=== PATIENT | female | born 1985 | race Hispanic/Latino ===

== ENCOUNTER 2020-06-27 12:37 | Emergency (ER) | payer BC, SELFPAY ==
--- OUTSIDE RECORDS SUMMARY | 2020-06-27 12:39 | XMS REPORT | Continuity of Care Document ---
:1985 Author Organization [facility] t Address [facility] [place] [address] [place] [id number] Care Team Providers Name Role Phone Fahad Mccauley Attending Clinician Doctor Unassigned, Name Attending Clinician Unavailable Problems This patient has no known problems. Allergies, Adverse Reactions, Alerts This patient has no known allergies or adverse reactions. Medications This patient has no known medications. Procedures This patient has no known procedures. Encounters Start End Encounter Admission Attending Care Care Encounter Source Date/Time Date/Time Type Type Clinicians Facility Department ID 2019-07-27 2019-07-27 Emergency CathyKevin ariza [facility] [id number] 19:57:58 21:27:00 T Laith [id number] Rule [id number] [place] [id number] 2019-07-27 2019-07-27 Orders Doctor YISSEL [id number] 00:00:00 00:00:00 Only UnassignedCYDNEY [id number] [place] [facility] [id number] Results This patient has no known results.
--- NOTE | 2020-06-27 15:14 | RAD REPORT ---
EXAM DESCRIPTION: Payal Single View06/27/2020 2:49 pm CLINICAL HISTORY: cough COMPARISON: none FINDINGS: The lungs appear clear of acute infiltrate. The heart is normal size IMPRESSION: No acute abnormalities displayed
--- NOTE | 2020-06-27 15:18 | ER ---
Nurse's Notes [facility] Name: Tequila Shankar Age: 34 yrs Sex: Female : 1985 Arrival Date: 06/27/2020 Time: 12:41 Bed 4 Private MD: Juancarlos Ortiz T Diagnosis: Coronavirus infection, unspecified Presentation: 06/27 12:47 Coronavirus screen: Client denies travel out of the [place] in the last 14 days. chills, ll1 congestion, cough unrelated to allergies, diarrhea, difficulty breathing, fatigue, headache, muscle pain, nausea, runny nose, shaking with chills, shortness of breath, sore throat, loss of taste or smell, Client presents with at least one sign or symptom that may indicate coronavirus-19. Standard/surgical mask placed on the client. Client reports previous positive COVID test result. Ebola Screen: Patient denies travel to an Ebola-affected area in the 21 days before illness onset. Initial Sepsis Screen: Does the patient meet any 2 criteria? No. Patient's initial sepsis screen is negative. Does the patient have a suspected source of infection? Yes: Productive cough/pneumonia. Risk Assessment: Do you want to hurt yourself or someone else? Patient reports no desire to harm self or others. Onset of symptoms was June 22, 2020. 12:47 Method Of Arrival: Ambulatory ll1 12:47 Acuity: NAIN 3 ll1 12:49 Chief complaint: Patient states: Covid positive Thursday, symptoms began Thursday. Chest ll1 tightness since Thursday. SOB for 2 days. No fever. Triage Assessment: 13:46 Respiratory: hb Historical: - Allergies: 12:49 No Known Allergies; ll1 - PMHx: 12:49 Diabetes - IDDM; Asthma; ll1 - PSHx: 12:49 ; Tubal ligation; ll1 - Immunization history:: Flu vaccine is not up to date. - Social history:: Smoking status: Patient denies any tobacco usage or history of. Screenin:45 Abuse screen: Denies threats or abuse. Denies injuries from another. Nutritional hb screening: No deficits noted. Tuberculosis screening: No symptoms or risk factors identified. Fall Risk None identified. Assessment: 13:45 General: Appears in no apparent distress. Behavior is calm, cooperative. Pain: Pain hb currently is 5 out of 10 on a pain scale. Neuro: Level of Consciousness is awake, alert, obeys commands, Oriented to person, place, time, situation. Cardiovascular: Capillary refill < 3 seconds Patient's skin is warm and dry. Rhythm is regular. Respiratory: Reports shortness of breath on exertion cough that is non-productive, Airway is patent Respiratory effort is even, unlabored, Respiratory pattern is regular, symmetrical. GI: No signs and/or symptoms were reported involving the gastrointestinal system. : No signs and/or symptoms were reported regarding the genitourinary system. EENT: No signs and/or symptoms were reported regarding the EENT system. Derm: Skin is pink, warm \T\ dry. Musculoskeletal: No signs and/or symptoms reported regarding the musculoskeletal system. 14:58 Reassessment: Patient appears in no apparent distress at this time. Patient and/or hb family updated on plan of care and expected duration. Pain level reassessed. Patient is alert, oriented x 3, equal unlabored respirations, skin warm/dry/pink. Vital Signs: 12:47 Pulse 85; Resp 18; Temp 97.4; Pulse Ox 100% on R/A; Pain 5/10; ll1 12:49 BP 170 / 116; ll1 12:49 Weight 87.09 kg; Height 5 ft. 0 in. (152.40 cm); ll1 14:58 BP 162 / 110; Pulse 73; Resp 16; Pulse Ox 99% on R/A; hb 12:49 Body Mass Index 37.50 (87.09 kg, 152.40 cm) ll1 ED Course: 12:41 Patient arrived in ED. mr 12:41 Juancarlos Ortiz MD is Private Physician. mr 12:47 Arm band placed on. ll1 12:49 Triage completed. ll1 13:33 Georgia Norwood FNP-C is [facility]. kb 13:33 Kevin Castrejon MD is Attending Physician. kb 13:37 Aleyda Zamora, SAMUEL is Primary Nurse. hb 13:45 Patient has correct armband on for positive identification. Bed in low position. Call hb light in reach. 14:49 Chest Single View XRAY In Process Unspecified. EDMS 15:32 No provider procedures requiring assistance completed. Patient did not have IV access hb during this emergency room visit. Administered Medications: No medications were administered Outcome: 15:17 Discharge ordered by . isaak 15:32 Discharged to home ambulatory. hb 15:32 Condition: stable 15:32 Discharge instructions given to patient, Instructed on discharge instructions, follow up and referral plans. medication usage, Demonstrated understanding of instructions, follow-up care, medications. 15:32 Patient left the ED. hb Signatures: Dispatcher [employer] EDIA Georgia Norwood, [facility] AHMAID-Negin Limon mr Aleyda Zamora, RN RN Poornima Vergara RN RN ll1
--- NOTE | 2020-06-27 15:18 | EDPHYS ---
Physician Documentation [facility] Name: Tequila Shankar Age: 34 yrs Sex: Female : 1985 Arrival Date: 06/27/2020 Time: 12:41 Bed 4 Private MD: Juancarlos Ortiz T ED Physician Kevin Castrejon HPI: 06/27 14:08 This 34 yrs old Female presents to ER via Ambulatory with complaints of kb COVID+, Breathing Difficulty. 14:10 The patient or guardian reports cough, difficulty breathing. Onset: The kb symptoms/episode began/occurred 6 day(s) ago, and became worse today. Severity of symptoms: At their worst the symptoms were moderate, in the emergency department the symptoms are unchanged. Modifying factors: The symptoms are alleviated by nothing, the symptoms are aggravated by nothing. Associated signs and symptoms: The patient has no apparent associated signs or symptoms. The patient has not experienced similar symptoms in the past. The patient has not recently seen a physician. Pt has had cough and shortness of breath since Thursday. Tested positive for COVID on Thursday. Came in today because the shortness of breath seems worse and her nebs aren't helping. . Historical: - Allergies: 12:49 No Known Allergies; ll1 - PMHx: 12:49 Diabetes - IDDM; Asthma; ll1 - PSHx: 12:49 ; Tubal ligation; ll1 - Immunization history:: Flu vaccine is not up to date. - Social history:: Smoking status: Patient denies any tobacco usage or history of. ROS: 14:07 Constitutional: Negative for fever, chills, and weight loss, Cardiovascular: Negative kb for chest pain, palpitations, and edema, Abdomen/GI: Negative for abdominal pain, nausea, vomiting, diarrhea, and constipation, MS/Extremity: Negative for injury and deformity, Skin: Negative for injury, rash, and discoloration, Neuro: Negative for headache, weakness, numbness, tingling, and seizure. 14:07 Respiratory: Positive for cough, shortness of breath, Negative for dyspnea on exertion, hemoptysis, orthopnea, pleurisy, sputum production, wheezing. Exam: 14:07 Constitutional: This is a well developed, well nourished patient who is awake, alert, kb and in no acute distress. Head/Face: Normocephalic, atraumatic. Chest/axilla: Normal chest wall appearance and motion. Nontender with no deformity. No lesions are appreciated. Cardiovascular: Regular rate and rhythm with a normal S1 and S2. No gallops, murmurs, or rubs. Normal PMI, no JVD. No pulse deficits. Respiratory: Lungs have equal breath sounds bilaterally, clear to auscultation and percussion. No rales, rhonchi or wheezes noted. No increased work of breathing, no retractions or nasal flaring. Abdomen/GI: Soft, non-tender, with normal bowel sounds. No distension or tympany. No guarding or rebound. No evidence of tenderness throughout. Skin: Warm, dry with normal turgor. Normal color with no rashes, no lesions, and no evidence of cellulitis. MS/ Extremity: Pulses equal, no cyanosis. Neurovascular intact. Full, normal range of motion. Neuro: Awake and alert, GCS 15, oriented to person, place, time, and situation. Cranial nerves II-XII grossly intact. Motor strength 5/5 in all extremities. Sensory grossly intact. Cerebellar exam normal. Normal gait. Vital Signs: 12:47 Pulse 85; Resp 18; Temp 97.4; Pulse Ox 100% on R/A; Pain 5/10; ll1 12:49 BP 170 / 116; ll1 12:49 Weight 87.09 kg; Height 5 ft. 0 in. (152.40 cm); ll1 14:58 BP 162 / 110; Pulse 73; Resp 16; Pulse Ox 99% on R/A; hb 12:49 Body Mass Index 37.50 (87.09 kg, 152.40 cm) ll1 MDM: 13:40 Patient medically screened. kb 14:08 Data reviewed: vital signs, nurses notes. Data interpreted: Pulse oximetry: on room air kb is 100 %. Interpretation: normal. 14:11 ED course: No resp distress. Lungs clear throughout bilaterally. Oxygen 100% on room kb air.. 15:16 Counseling: I had a detailed discussion with the patient and/or guardian regarding: the kb historical points, exam findings, and any diagnostic results supporting the discharge/admit diagnosis, radiology results, the need for outpatient follow up, a family practitioner, to return to the emergency department if symptoms worsen or persist or if there are any questions or concerns that arise at home. 06/27 13:47 Order name: Chest Single View XRAY; Complete Time: 15:16 kb Administered Medications: No medications were administered Disposition: 06/28 05:59 Co-signature as Attending Physician, Kevni Castrejon MD I agree with the assessment and kdr plan of care. Disposition: 06/27/20 15:17 Discharged to Home. Impression: Coronavirus infection, unspecified. - Condition is Stable. - Discharge Instructions: Viral Respiratory Infection, [id number], COVID-19. - Medication Reconciliation Form, Thank You Letter, Antibiotic Education, Prescription Opioid Use form. - Follow up: Private Physician; When: 2 - 3 days; Reason: Recheck today's complaints, Continuance of care, Re-evaluation by your physician. Follow up: Emergency Department; When: As needed; Reason: Worsening of condition. Signatures: Dispatcher [employer] EDMS Georgia Norwood, TRUCK SHOP MECHANIC-C TRUCK SHOP MECHANIC-Kevin Martin MD MD [facility] Aleyda Zamora RN RN Poornima Vergara RN RN ll1 Corrections: (The following items were deleted from the chart) 06/27 15:32 15:17 06/27/2020 15:17 Discharged to Home. Impression: Coronavirus infection, hb unspecified. Condition is Stable. Forms are Medication Reconciliation Form, Thank You Letter, Antibiotic Education, Prescription Opioid Use. Follow up: Private Physician; When: 2 - 3 days; Reason: Recheck today's complaints, Continuance of care, Re-evaluation by your physician. Follow up: Emergency Department; When: As needed; Reason: Worsening of condition. kb
[2020-06-27 15:50] VITALS: TEMP 97.4
[2020-06-27 15:52] VITALS: BP 162/110; O2SAT 99
== END 2020-06-27 15:32 | disposition home or self-care (01) ==
LOC: ER 12:37
DX: U07.1 COVID-19 (principal)
CPT/HCPCS: 71045; 99283

== ENCOUNTER 2025-02-14 09:10 | Emergency (ER) | payer OTHER, SELFPAY ==
[2025-02-14] MEDS ORDERED: MINERAL OIL, LITE 10 ML VIAL ONE (09:52)
--- NOTE | 2025-02-14 12:18 | ER ---
Nurse's Notes [facility] Name: Tequila Shankar Age: 39 yrs Sex: Female : 1985 Arrival Date: 02/14/2025 Time: 09:10 Bed 4 Private MD: Diagnosis: Ocular pain, left eye-LASHES GLUED SHUT, ADHESIVE Presentation: 02/14 09:21 Chief complaint: Patient states: "I accidentally put super glue in my eye. 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 C/o burning to L eye and feels like eyelids are stuck shut. Coronavirus screen: Client denies travel out of the [place] in the last 14 days. Ebola Screen: Patient denies exposure to infectious person. Patient denies travel to an Ebola-affected area in the 21 days before illness onset. Initial Sepsis Screen: Does the patient meet any 2 criteria? No. Patient's initial sepsis screen is negative. Does the patient have a suspected source of infection? No. Patient's initial sepsis screen is negative. Risk Assessment: Do you want to hurt yourself or someone else? Patient reports no desire to harm self or others. Onset of symptoms was February 14, 2025. 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 - Infectious Disease History:: Denies. - Social history:: Smoking status: Patient denies any tobacco usage or history of. - Family history:: not pertinent. Screenin:32 [facility] Fall Risk Assessment (Adult) History of falling in the last 3 months, dd2 including since admission No falls in past 3 months (0 pts) Confusion or Disorientation No (0 pts) Intoxicated or Sedated No (0 pts) Impaired Gait No (0 pts) Mobility Assist Device Used No (0 pt) Altered Elimination No (0 pt) Score/Fall Risk Level 0 - 2 = Low Risk Oriented to surroundings, Maintained a safe environment, Educated pt \\T\\ family on fall prevention, incl call for assistance when getting out of bed, Assessed \\T\\ reinforced patient's understanding of fall precautions, Hourly rounding (assess needs \\T\\ fall precautionary measures) done. Abuse screen: Denies threats or abuse. Denies injuries from another. Nutritional screening: No deficits noted. Tuberculosis screening: No symptoms or risk factors identified. Assessment: 10:32 General: Appears uncomfortable, Behavior is calm, cooperative, appropriate for age. dd2 Pain: Complains of pain in left eye Pain currently is 6 out of 10 on a pain scale. Neuro: No deficits noted. Cardiovascular: No deficits noted. Respiratory: No deficits noted. GI: No deficits noted. No signs and/or symptoms were reported involving the gastrointestinal system. : No deficits noted. No signs and/or symptoms were reported regarding the genitourinary system. EENT: Eyes MEDICATION PLACED IN LT EYE ORDERED BY MD BY PREVIOUS RN.. Reports pain in left eye. Derm: No deficits noted. No signs and/or symptoms reported regarding the dermatologic system. Musculoskeletal: No deficits noted. No signs and/or symptoms reported regarding the musculoskeletal system. 12:06 Reassessment: Patient and/or family updated on plan of care and expected duration. Pain ap3 level reassessed. Patient is alert, oriented x 3, equal unlabored respirations, skin warm/dry/pink. Vital Signs: 09:21 Pulse 80; Resp 18; Temp 98(O); Pulse Ox 97% on R/A; Weight 86.18 kg; Height 5 ft. 0 in. ss ; Pain 8/10; 09:21 Body Mass Index 37.11 (86.18 kg, 152.4 cm) ss 09:21 Pain Scale: Adult ss [place] Coma Score: 10:32 Eye Response: spontaneous(4). Motor Response: obeys commands(6). Verbal Response: dd2 oriented(5). Total: 15. ED Course: 09:12 Patient arrived in ED. al6 09:13 Vitaly Cherry MD is Attending Physician. brayden 09:23 Triage completed. ss 09:23 Arm band placed on left wrist. ss 09:28 Poornima Vergara, SAMUEL is Primary Nurse. ll1 10:32 Patient has correct armband on for positive identification. Bed in low position. Call dd2 light in reach. Side rails up X 1. Client placed on continuous cardiac and pulse oximetry monitoring. NIBP monitoring applied. 10:32 No provider procedures requiring assistance completed. Patient did not have IV access dd2 during this emergency room visit. 11:37 Door closed. Noise minimized. Lights dimmed. Warm blanket given. pm7 12:17 Devan Arboleda MD is Referral Physician. [facility] 12:28 Provided Education on:. ap3 Administered Medications: No medications were administered Medication: 10:32 VIS not applicable for this client. dd2 Outcome: 12:17 Discharge ordered by . [facility] 12: Discharged to home ambulatory, with family, [facility] 12:28 Condition: good 12:28 Discharge instructions given to patient, Instructed on discharge instructions, follow up and referral plans. medication usage, Demonstrated understanding of instructions, follow-up care, medications, 12:41 Patient left the ED. ss Signatures: Vitaly Cherry MD MD cha Blanchard, Shelby, RN RN ss Francia Montiel RN RN ap3 Poornima Vergara RN RN ll1 FRAN HASKINS RN RN dd2 Martina Lamb al6 Kayla Hammond pm7
--- NOTE | 2025-02-14 12:18 | EDPHYS ---
Physician Documentation [facility] Name: Tequila Shankar Age: 39 yrs Sex: Female : 1985 Arrival Date: 02/14/2025 Time: 09:10 Bed 4 Private MD: ED Physician Vitaly Cherry HPI: 02/14 12:13 This 39 yrs old Female presents to ER via Ambulatory with complaints of brayden Chemical Exposure In Eye. 12:13 The patient is experiencing pain, glue in eye. Onset: The symptoms/episode brayden began/occurred just prior to arrival. Duration: the symptoms are continuous. Aggravated by nothing. Alleviated by nothing. Associated signs and symptoms: Pertinent positives:. Patient does not utilize any form of vision correction. Severity of symptoms: At their worst the symptoms were very mild in the emergency department the symptoms are unchanged. The patient has not experienced similar symptoms in the past. 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 - Infectious Disease History:: Denies. - Social history:: Smoking status: Patient denies any tobacco usage or history of. - Family history:: not pertinent. ROS: 12:13 Constitutional: Negative for fever, chills, and weight loss, ENT: Negative for injury, brayden pain, and discharge, Neck: Negative for injury, pain, and swelling, Cardiovascular: Negative for chest pain, palpitations, and edema, Respiratory: Negative for shortness of breath, cough, wheezing, and pleuritic chest pain, Abdomen/GI: Negative for abdominal pain, nausea, vomiting, diarrhea, and constipation, Back: Negative for injury and pain, : Negative for injury, bleeding, discharge, and swelling, MS/Extremity: Negative for injury and deformity, Skin: Negative for injury, rash, and discoloration, Neuro: Negative for headache, weakness, numbness, tingling, and seizure, Psych: Negative for depression, anxiety, suicide ideation, homicidal ideation, and hallucinations, Allergy/Immunology: Negative for hives, rash, and allergies, Endocrine: Negative for neck swelling, polydipsia, polyuria, polyphagia, and marked weight changes, Hematologic/Lymphatic: Negative for swollen nodes, abnormal bleeding, and unusual bruising, 12:13 Eyes: Positive for pain, glue on lashes, Exam: 12:13 Constitutional: This is a well developed, well nourished patient who is awake, alert, brayden and in no acute distress. Head/Face: Normocephalic, atraumatic. ENT: Nares patent. No nasal discharge, no septal abnormalities noted. Tympanic membranes are normal and external auditory canals are clear. Oropharynx with no redness, swelling, or masses, exudates, or evidence of obstruction, uvula midline. Mucous membranes moist. Neck: Trachea midline, no thyromegaly or masses palpated, and no cervical lymphadenopathy. Supple, full range of motion without nuchal rigidity, or vertebral point tenderness. No Meningismus. Chest/axilla: Normal chest wall appearance and motion. Nontender with no deformity. No lesions are appreciated. Cardiovascular: Regular rate and rhythm with a normal S1 and S2. No gallops, murmurs, or rubs. Normal PMI, no JVD. No pulse deficits. Respiratory: Lungs have equal breath sounds bilaterally, clear to auscultation and percussion. No rales, rhonchi or wheezes noted. No increased work of breathing, no retractions or nasal flaring. Abdomen/GI: Soft, non-tender, with normal bowel sounds. No distension or tympany. No guarding or rebound. No evidence of tenderness throughout. Back: No spinal tenderness. No costovertebral tenderness. Full range of motion. Skin: Warm, dry with normal turgor. Normal color with no rashes, no lesions, and no evidence of cellulitis. MS/ Extremity: Pulses equal, no cyanosis. Neurovascular intact. Full, normal range of motion., bilateral aka Neuro: Awake and alert, GCS 15, oriented to person, place, time, and situation. Cranial nerves II-XII grossly intact. Motor strength 5/5 in all extremities. Sensory grossly intact. Cerebellar exam normal. Normal gait. Psych: Awake, alert, with orientation to person, place and time. Behavior, mood, and affect are within normal limits. 12:13 Eyes: left eye lashes glued shut. Vital Signs: 09:21 Pulse 80; Resp 18; Temp 98(O); Pulse Ox 97% on R/A; Weight 86.18 kg; Height 5 ft. 0 in. ss ; Pain 8/; 09:21 Body Mass Index 37.11 (86.18 kg, 152.4 cm) 09:21 Pain Scale: Adult ss [place]naz Coma Score: 10:32 Eye Response: spontaneous(4). Motor Response: obeys commands(6). Verbal Response: dd2 oriented(5). Total: 15. MDM: 09:13 Medical Screening Exam initiated brayden 09:17 Medical Screening Exam initiated [facility] 12:15 Differential diagnosis: lashes glued together. Data reviewed: vital signs, nurses [facility] notes. Consideration of Admission/Observation Escalation of care including admission/observation considered. I considered the following discharge prescriptions or medication management in the emergency department Medications were administered in the Emergency Department. See MAR. Test considered but Not performed: Labs: no labs. Historians other than the Patient: Spouse/Significant Other: spouse well informed. Care significantly affected by the following chronic conditions: Diabetes, Obesity, asthma. 02/14 09:41 Order name: [facility]. Order: baby oil to left eye; Complete Time: 10:05 brayden Administered Medications: No medications were administered Disposition Summary: 02/14/25 12:17 Discharge Ordered Notes: Location: Home [facility] Problem: new [facility] Symptoms: have improved brayden Condition: Stable [facility] Diagnosis - Ocular pain, left eye - LASHES GLUED SHUT, ADHESIVE brayden Followup: brayden - With: Private Physician - When: 1 - 2 days - Reason: Recheck today's complaints, Continuance of care, Re-evaluation by your physician Followup: brayden - With: Devan Arboleda MD - When: Upon discharge from the Emergency Department - Reason: Recheck today's complaints, Re-evaluation by your physician Discharge Instructions: - Discharge Summary Sheet [facility] Forms: - Medication Reconciliation Form [facility] - Antibiotic Education brayden - Prescription Opioid Use brayden - Patient Portal Instructions [facility] - Leadership Thank You Letter [facility] Prescriptions: - Tobrex 0.3 % Ophthalmic ointment - instill 0.25 inch OPHTHALMIC route every 4 hours for 7 days; 3.5 inch; Refills: brayden 0, Product Selection Permitted Signatures: Vitaly Cherry MD MD cha Blanchard, Shelby, RN RN ss FRAN HASKINS RN RN dd2
[2025-02-14 12:45] VITALS: TEMP 98; O2SAT 97
== END 2025-02-14 12:41 | disposition home or self-care (01) ==
LOC: ER 09:10
DX: H57.12 Ocular pain, left eye (principal); H02.59 Other disorders affecting eyelid function
CPT/HCPCS: 99283